=== PATIENT | female | born 1975 | race Caucasian/White ===

== ENCOUNTER → 2017-02-04 | Outpatient (CLI) | payer OTHER ==
--- NOTE | 2017-02-04 15:30 | REP ---
PELVIC ULTRASOUND: Real-time sonographic evaluation of the pelvis is performed utilizing transabdominal and endovaginal technique. The bladder measures 12.6 x 8.8 x 10.0 cm. The uterus measures 8.3 x 4.7 x 6.0 cm. Endometrial thickness is 12 mm. A tiny calcification is seen in the endometrium. The right ovary measures 4.0 x 2.6 x 2.5 cm and left ovary 2.8 x 2.1 x 2.8 cm. A complex follicle in the right ovary measures 1.2 cm in diameter. There is no other evidence of adnexal mass or free fluid. There is no evidence of ovarian torsion bilaterally with blood flow seen in each ovary with duplex Doppler evaluation. IMPRESSION: Essentially negative pelvic ultrasound. No mass or torsion. Small follicle right ovary 1.2 cm in diameter. Signed by Cruz Salazar MD 02/04/2017 07:51 P
== END ==
LOC: M RAD 13:27
PROVIDERS: ATTEND Specialist
DX: N83.01 Follicular cyst of right ovary (principal); Z12.4 Encounter for screening for malignant neoplasm of cervix

== ENCOUNTER → 2017-04-30 | Outpatient (CLI) | payer OTHER ==
--- NOTE | 2017-04-30 09:50 | REPMRS ---
Patient History The patient states she had a clinical breast exam in February 2017.Family history of unknown cancer in maternal grandfather at age 53 and unknown cancer in maternal uncle at age 30. Digital Mammo Screening Bilat: April 30, 2017 - Exam #: [id number] Bilateral CC and MLO view(s) were taken. Technologist: Carina Conrad, Technologist Prior study comparison: April 22, 2016, bilateral digital mammo screening bilat performed at [facility]. April 19, 2015, bilateral digital mammo screening bilat performed at [facility]. FINDINGS: There are scattered fibroglandular densities. There has been no change in the appearance of the mammogram from the prior studies. There is a mild amount of residual fibroglandular tissue which is fairly symmetric. There is no interval development of dominant mass, architectural distortion, or clustered microcalcification suggestive of malignancy. ASSESSMENT: BI-RADS/ACR category 1 mammogram. Negative. Recommendation Routine screening mammogram in 1 year (for women over age 40). This mammogram was interpreted with the aid of an FDA-approved computer-aided dectection system. Electronically Signed By: Cruz Salazar MD 04/30/17 [id number]
== END ==
LOC: M RAD 08:52
PROVIDERS: ATTEND Specialist
DX: Z12.31 Encounter for screening mammogram for malignant neoplasm of breast (principal)

== ENCOUNTER → 2018-05-06 | Outpatient (CLI) | payer OTHER | LOC: M RAD 09:28 | DX: Z12.31 Encounter for screening mammogram for malignant neoplasm of breast (principal) | CPT/HCPCS: 77067 ==

== ENCOUNTER → 2018-06-01 | Outpatient (REF) | payer OTHER ==
[2018-06-03 14:18] LABS: HPV HYBRID CAPTURE II Negative (Negative)
== END ==
LOC: M LAB REF 13:58
DX: Z12.4 Encounter for screening for malignant neoplasm of cervix (principal)

== ENCOUNTER → 2019-06-02 | Outpatient (CLI) | payer OTHER ==
--- NOTE | 2019-06-02 11:05 | REPMRS ---
Patient History The patient states she has not had a clinical breast exam in over a year. Family history of unknown cancer at age 53 in maternal grandfather, unknown cancer at age 30 in maternal uncle. Digital Mammo Screening Bilat: June 02, 2019 - Exam #: [id number] Bilateral CC and MLO view(s) were taken. Technologist: Rosaline Coppola, Technologist Prior study comparison: May 06, 2018, bilateral digital mammo screening bilat performed at [facility]. April 30, 2017, bilateral digital mammo screening bilat performed at [facility]. April 22, 2016, bilateral digital mammo screening bilat performed at [facility]. FINDINGS: There are scattered fibroglandular densities. There has been no change in the appearance of the mammogram from the prior studies. There is a mild amount of scattered fibroglandular density which is fairly symmetric. There is no interval development of dominant mass, architectural distortion, or grouped microcalcification suggestive of malignancy. 3-D tomosynthesis shows no additional findings. Assessment: BI-RADS/ACR category 1 mammogram. Negative Mammogram. Recommendation Routine screening mammogram of both breasts in 1 year (for women over age 40). This patient's Lifetime Breast Cancer Risk is estimated at 11.0 %. This mammogram was interpreted with the aid of an FDA-approved computer-aided dectection system. Electronically Signed By: Lukasz Galindo MD 06/02/19 [id number]
== END ==
LOC: M RAD 10:25
PROVIDERS: ATTEND Internal Medicine
DX: Z12.31 Encounter for screening mammogram for malignant neoplasm of breast (principal)

== ENCOUNTER → 2020-07-19 | Outpatient (REF) | payer OTHER | LOC: M SFHCWAGY 13:09 | PROVIDERS: ATTEND Specialist | DX: Z01.419 Encounter for gynecological examination (general) (routine) without abnormal findings (principal) | CPT/HCPCS: 87624; G0123 ==

== ENCOUNTER → 2020-07-19 | Outpatient (CLI) | payer OTHER ==
--- NOTE | 2020-07-19 12:19 | REPMRS ---
Patient History The patient states she had a clinical breast exam in 07/2020. Family history of prostate cancer at age 63 in father. No Hormone Replacement Therapy Digital Woman Screen Mammo: July 19, 2020 - Exam #: [id number] Bilateral CC and MLO view(s) were taken. Technologist: Wendy Black, Technologist Prior study comparison: June 02, 2019, bilateral digital mammo screening bilat, performed at [facility]. May 06, 2018, bilateral digital mammo screening bilat, performed at [facility]. April 30, 2017, bilateral digital mammo screening bilat, performed at [facility]. FINDINGS: There are scattered fibroglandular densities. The Volpara volumetric breast density category is:B. There has been no change in the appearance of the mammogram from the prior studies. There is a mild amount of scattered fibroglandular density which is fairly symmetric. There is no interval development of dominant mass, architectural distortion, or grouped microcalcification suggestive of malignancy. 3-D tomosynthesis shows no additional findings. Assessment: BI-RADS/ACR category 1 mammogram. Negative Mammogram. Recommendation Routine screening mammogram of both breasts in 1 year (for women over age 40). This patient's Lifetime Breast Cancer Risk is estimated at 10.8 %. This mammogram was interpreted with the aid of an FDA-approved computer-aided dectection system. Electronically Signed By: Lukasz Galindo MD 07/19/20 [id number]
== END ==
LOC: M WHC 08:55
PROVIDERS: ATTEND Specialist
DX: Z12.31 Encounter for screening mammogram for malignant neoplasm of breast (principal)

== ENCOUNTER → 2020-07-20 | Outpatient (CLI) | payer OTHER ==
--- NOTE | 2020-07-20 16:52 | REP ---
INDICATION: R10.2 PELVIC PAIN COMPARISON: None. TECHNIQUE: Transabdominal pelvic ultrasound followed by transvaginal examination for better evaluation of the endometrium and adnexa with color Doppler evaluation of the ovaries. FINDINGS: Bladder is unremarkable and measures 8.0 x 3.7 x 7.8 cm. Normal heterogeneous anteverted uterus measures 10.4 x 4.5 x 5.4 cm. The endometrial complex measures 10 mm thickness. No discrete uterine or endometrial abnormalities are appreciated. Ovaries are not visualized on either transabdominal or transvaginal imaging due to technical factors. No obvious pelvic fluid or adnexal mass lesion. IMPRESSION: 1. Heterogeneous anteverted uterus. 2. Ovaries not visualized. No pelvic free fluid. <Electronically signed by Nagi Hendrix > 07/20/20 [id number]
== END ==
LOC: M WHC 15:52
PROVIDERS: ATTEND Specialist
DX: R10.2 Pelvic and perineal pain (principal); N85.4 Malposition of uterus

== ENCOUNTER → 2020-09-05 | Outpatient (CLI) | payer SELFPAY | LOC: M LABSMTC 11:26 | PROVIDERS: ATTEND Pediatrics | DX: Z20.828 Contact with and (suspected) exposure to other viral communicable diseases (principal) ==

== ENCOUNTER → 2021-09-05 | Outpatient (CLI) | payer OTHER, SELFPAY | LOC: M WHC 07:45 | PROVIDERS: ATTEND Specialist | DX: Z12.31 Encounter for screening mammogram for malignant neoplasm of breast (principal) ==

== ENCOUNTER → 2023-06-13 | Outpatient (REF) | payer OTHER | LOC: M SFHCWAGY 14:55 | PROVIDERS: ATTEND Specialist | DX: Z12.4 Encounter for screening for malignant neoplasm of cervix (principal) | CPT/HCPCS: 87624; G0123 ==

== ENCOUNTER → 2023-06-25 | Outpatient (CLI) | payer OTHER | LOC: M WHC 15:11 | PROVIDERS: ATTEND Specialist | DX: R10.2 Pelvic and perineal pain (principal) ==